=== PATIENT | male | born 1990 | race Caucasian/White ===

== ENCOUNTER 2023-09-29 18:31 | Emergency (ER) | payer OTHER ==
[~2023-09-29] VITALS: Ht 185.4 cm; Wt 95.2 kg
[2023-09-29 18:51] VITALS: BP 128/61
[2023-09-29] MEDS ORDERED: AMOCLA875 PO (20:40)
== END 2023-09-29 21:03 | disposition home or self-care (01) ==
LOC: ER 18:31
DX: S61.452A Open bite of left hand, initial encounter (principal); S61.451A Open bite of right hand, initial encounter; W54.0XXA Bitten by dog, initial encounter
CPT/HCPCS: 73130; 90471; 90714; 96372; 99283-25; A9270; J1885